=== PATIENT | female | born 1940 | race Caucasian/White ===

== ENCOUNTER 2020-05-24 15:29 | Emergency (ER) | payer OTHER ==
[2020-05-24 17:29] LABS: Absolute Lymphocytes (CBC) 0.7 K/uL (0.7-4.9); Basophils % 0.2 % (0-1.3); Hematocrit 40.9 % (36.0-45.0); Lymphocytes % 7.3 % (15.3-44.8); MPV 6.6 fL (7.6-11.3)
[2020-05-24] MEDS ORDERED: NA CHLORIDE 0.9% 500 ML ONE (17:33)
[2020-05-24 17:45] LABS: Albumin 2.7 g/dL (3.4-5.0); Bilirubin Total 1.8 mg/dL (0.2-1.0); Magnesium 2.6 mg/dL (1.8-2.4); Potassium 3.7 mmol/L (3.5-5.1); Protein, Total 7.7 g/dL (6.4-8.2)
--- NOTE | 2020-05-24 17:54 | RAD REPORT ---
EXAM DESCRIPTION: CT - Head Brain Wo Cont - 05/24/2020 5:41 pm CLINICAL HISTORY: Alteration of awareness/confusion COMPARISON: None TECHNIQUE: Computed axial tomography of the head was obtained. IV contrast was not requested. All CT scans are performed using dose optimization technique as appropriate and may include automated exposure control or mA/KV adjustment according to patient size. FINDINGS: An intracranial bleed is not seen . The ventricles are normal in caliber. No extra-axial fluid collection is noted. Mild low-density areas within periventricular, deep and subcortical white matter likely represent isc hemic changes secondary to small vessel disease. Cerebral atrophy. 1.5 low-density area right parietal lobe Right mastoids are opacified IMPRESSION: 1.5 low-density right parietal lobe has a nonspecific appearance. It has more of the chente earance of being chronic than acute and may represent a small area of ischemia or small infarct. No acute intracranial abnormality is seen. If patient's symptoms persist MRI of the brain would be r ecommended. Right mastoid opacification. This can be seen with mastoiditis and should be correlated clinically.
--- NOTE | 2020-05-24 18:01 | RAD REPORT ---
EXAM DESCRIPTION: [facility] Single View05/24/2020 5:18 pm CLINICAL HISTORY: Cough COMPARISON: 2015 FINDINGS: The lungs appear clear of acute infiltrate. The heart is normal size IMPRESSION: No acute abnormalities displayed
[2020-05-24 18:05] LABS: Anisocytosis 3+; Blood Morphology Comment NOTED (NOT SEEN); Macrocytosis 1+; Platelet Estimate ADEQ; Platelets, Giant NOTED; White Blood Cell Scan OK (OK)
[2020-05-24 18:15] LABS: Urine Blood TRACE (NEG); Urine Glucose NEGATIVE (NEG); Urine Protein 1+ (NEG)
[2020-05-24] MEDS ORDERED: CEFTRIAXONE/SWI 1gm 1 GM/10 ML SYR ONE (18:38)
[2020-05-24 18:43] LABS: Urine Bacteria >50 /HPF (<20); Urine Culture Reflex Order NOT NEEDED; Urine RBC <5 /HPF (NONE SEEN); Urine Urothelial Cells <5 /HPF (NONE SEEN)
[2020-05-24] MEDS ORDERED: NA CHLORIDE 0.9% 1,000 ML ONE (19:08)
--- NOTE | 2020-05-24 19:43 | RAD REPORT ---
EXAM DESCRIPTION: CT - Abdomen Pelvis W Contrast - 05/24/2020 7:24 pm CLINICAL HISTORY: Abdominal pain / elevated liver function test enzymes COMPARISON: none. TECHNIQUE: Computed axial tomography of the abdomen pelvis was obtained. 100 cc Isovue-300 was admin istered intravenously. Oral contrast was not requested which limits evaluation of bowel. All CT scans are performed using dose optimization technique as appropriate and may include automated exposure control or mA/KV adjustment according to patient size. FINDINGS: Multiple gallstones are present. The gallbladder is distended. The liver has a heterogeneous density. Fatty liver is present. The spleen, pancreas, adrenals and kidneys unremarkable No evidence of diverticulitis. Right posterolateral disc herniation L4-5 IMPRESSION: Cholelithiasis Fatty liver Heterogeneous hepatic density probably indicating inflammation
--- NOTE | 2020-05-24 22:29 | EDPHYS ---
Physician Documentation [facility] Name: Yasmin Brody Age: 79 yrs Sex: Female : 1940 Arrival Date: 05/24/2020 Time: 15:30 Bed 13 Private MD: ED Physician Keon Batista HPI: 05/24 17:09 This 79 yrs old Female presents to ER via Wheelchair with complaints of rn Decreased Appetite, dehydration, AMS. 17:09 The patient presents with decreased mental status. Onset: The symptoms/episode rn began/occurred 1 week(s) ago. Possible causes: unknown. Associated signs and symptoms: Pertinent positives: weakness, Pertinent negatives: abdominal pain, chest pain, headache, seizure, shortness of breath, vomiting. Current symptoms: In the emergency department the patient's symptoms are unchanged from the initial presentation. The patient has not experienced similar symptoms in the past. The patient has not recently seen a physician. daughter reports 1 week not acting like herself, not eating, decreased strength, dehydration. Reports feels like has lost the will to live, recent family , but marked change recently. Reports recent fall, unsure if any head injury. No extremity injury or pain.. Historical: - Allergies: 15:48 No Known Allergies; jd3 - Home Meds: 15:48 None [Active]; jd3 - PMHx: 15:48 None; jd3 - PSHx: 15:48 None; jd3 - Immunization history:: Adult Immunizations up to date. - Social history:: Smoking status: Patient denies any tobacco usage or history of. - Family history:: not pertinent. - Hospitalizations: : No recent hospitalization is reported. - History obtained from: daughter. ROS: 17:09 Constitutional: Negative for fever, chills Eyes: Negative for injury, pain, redness, rn and discharge, ENT: + right ear pain Neck: Negative for injury, pain, and swelling, Cardiovascular: Negative for chest pain, palpitations, and edema, Respiratory: + cough Abdomen/GI: Negative for abdominal pain, nausea, vomiting, diarrhea, and constipation, Back: Negative for injury and pain, : Negative for injury, bleeding, discharge, and swelling, MS/Extremity: Negative for injury and deformity, Skin: Negative for injury, rash, and discoloration, Neuro: Negative for headache, numbness, tingling, and seizure. Exam: 17:09 Constitutional: This is a well developed, well nourished patient who is awake, alert, rn and in no acute distress. Head/Face: Normocephalic, atraumatic. ENT: very dry MM, no stridor, no masses or swelling Neck: No cervical lymphadenopathy. Cardiovascular: Regular rate and rhythm. No pulse deficits. Respiratory: No increased work of breathing, no retractions or nasal flaring. Abdomen/GI: Soft, non-tender Skin: warm, dry, + tenting of skin MS/ Extremity: Pulses equal, no cyanosis. Neurovascular intact. Full, normal range of motion. Equal circumference. Neuro: Awake and alert, moves all 4 extremities, [id number], follows commands, normal coordination Vital Signs: 15:48 BP 111 / 51; Pulse 84; Resp 18; Temp 97.1(TE); Pulse Ox 98% on R/A; Weight 56.7 kg (R); d3 Height 5 ft. 6 in. (167.64 cm) (R); Pain 4/10; 17:07 BP 130 / 73; Pulse 79; Resp 16 S; Pulse Ox 100% on R/A; ca1 18:00 BP 112 / 79; Pulse 81; Resp 16 S; Pulse Ox 98% on R/A; ca1 19:00 BP 129 / 97; Pulse 62; Resp 16 S; Pulse Ox 100% on R/A; ca1 20:00 BP 138 / 68; Pulse 90; Resp 16 S; Pulse Ox 98% on R/A; ca1 21:00 BP 147 / 77; Pulse 86; Resp 16 S; Pulse Ox 97% on R/A; ca1 23:13 BP 132 / 71; Pulse 95; Resp 17 S; Pulse Ox 99% on R/A; jd3 15:48 Body Mass Index 20.18 (56.70 kg, 167.64 cm) [facility] MDM: 16:28 Patient medically screened. rn 22:24 Differential Diagnosis: CVA, electrolyte abnormality, hypoglycemia, intracranial bleed, mh7 pneumonia, sepsis, UTI, volume depletion. Data reviewed: vital signs, nurses notes, lab test result(s), CBC, electrolytes, urinalysis, EKG, radiologic studies, CT scan. Data interpreted: Pulse oximetry: on room air is 97 %. Counseling: I had a detailed discussion with the patient and/or guardian regarding: the historical points, exam findings, and any diagnostic results supporting the discharge/admit diagnosis, the presence of at least one elevated blood pressure reading (>120/80) during this emergency department visit, lab results, radiology results, the need to transfer to another facility, for higher level of care, [facility] does not immediately have the required specialist. Response to treatment: the patient's symptoms have mildly improved after treatment. Physician consultation: Dominic Greco MD regarding patient's condition, after a discussion of the case, a recommendation for transfer for higher level of care is made. 05/24 16:54 Order name: CBC with Diff; Complete Time: 19: 05/24 16:54 Order name: Basic Metabolic Panel; Complete Time: 17:54 05/24 16:54 Order name: Urine Culture 05/24 16:54 Order name: Urine Microscopic Only; Complete Time: 19: 05/24 16:54 Order name: Magnesium; Complete Time: 17:54 05/24 16:54 Order name: Procalcitonin; Complete Time: 19: 05/24 16:54 Order name: CK; Complete Time: 17:54 05/24 16:54 Order name: Hepatic Function; Complete Time: 17:54 05/24 16:54 Order name: Lipase; Complete Time: 17:54 05/24 16:54 Order name: Flu; Complete Time: 17:45 05/24 16:54 Order name: Strep; Complete Time: 17:45 05/24 17:34 Order name: Throat Culture [facility] 05/24 17:36 Order name: CBC Smear Scan; Complete Time: 19: [facility] 05/24 18:09 Order name: Urine Dipstick--Ancillary (enter results); Complete Time: 19:01 sc 05/24 16:54 Order name: IV Start; Complete Time: 17:19 05/24 16:54 Order name: Urine Dipstick-Ancillary (obtain specimen); Complete Time: 18:08 05/24 16:54 Order name: Labs collected and sent; Complete Time: 17:19 05/24 16:54 Order name: XRAY Chest (1 view); Complete Time: 18:06 05/24 16:54 Order name: CT Head Brain wo Cont; Complete Time: 17:59 rn 05/24 18:11 Order name: CT Abd/Pelvis - IV Contrast Only; Complete Time: 19:45 rn 05/24 22:31 Order name: Basic Metabolic Panel 7 Administered Medications: Discontinued: NS 0.9% 1000 ml IV at 125 ml/hr continuous 17:22 Drug: NS 0.9% 500 ml Route: IV; Rate: bolus; Site: right antecubital; ca1 18:20 Follow up: Response: No adverse reaction; IV Status: Completed infusion; IV Intake: jd3 500ml 18:28 Drug: Rocephin 1 grams Route: IV; Rate: calculated rate; Site: right antecubital; ca1 19:20 Follow up: Response: No adverse reaction; IV Status: Completed infusion jd3 20:06 Drug: NS 0.9% 1000 ml Route: IV; Rate: 125 ml/hr; Site: right antecubital; ca1 23:31 Follow up: Response: No adverse reaction; IV Status: Order to discontinue infusion jd3 Disposition: 05/24/20 22:28 Transfer ordered to [facility]. Diagnosis are Dehydration, Urinary tract infection, site not specified, Hyperosmolality and hypernatremia, Cholelithiasis-Possible Choledocolithiasis. - Reason for transfer: Higher level of care. - Accepting physician is Dr. Ferraro. - Condition is Stable. - Problem is new. - Symptoms have improved. Signatures: Dispatcher [employer] EDMS Fer Mota MD MD rn Pena, Laura RN RN lp1 Helio Santacruz, STAMP ANALYST-C STAMP ANALYST-Cla1 Darian Das RN RN jd3 Radha Dangelo RN RN ca1 Keon Batista MD MD 7 Corrections: (The following items were deleted from the chart) 22:46 22:28 05/24/2020 22:28 Transfer ordered to [facility]. 7 Diagnosis is Dehydration; Urinary tract infection, site not specified; Hyperosmolality and hypernatremia; Cholelithiasis-Possible Choledocolithiasis. Reason for transfer: Higher level of care. Accepting physician is Dr. Dietrich/Jay. Condition is Stable. Problem is new. Symptoms have improved. 7 05/25 00:35 05/24 22:46 05/24/2020 22:28 Transfer ordered to [facility]. lp1 Diagnosis is Dehydration; Urinary tract infection, site not specified; Hyperosmolality and hypernatremia; Cholelithiasis-Possible Choledocolithiasis. Reason for transfer: Higher level of care. Accepting physician is Dr. Ferraro. Condition is Stable. Problem is new. Symptoms have improved. mh7
--- NOTE | 2020-05-24 22:29 | ER ---
Nurse's Notes [facility] Name: Yasmin Brody Age: 79 yrs Sex: Female : 1940 Arrival Date: 05/24/2020 Time: 15:30 Bed 13 Private MD: Diagnosis: Dehydration;Urinary tract infection, site not specified;Hyperosmolality and hypernatremia;Cholelithiasis-Possible Choledocolithiasis Presentation: 05/24 15:44 Chief complaint: Patient's son or daughter states: adult child:" he doctor said after jd3 lab work said everything looked good, but low on protein. but here recently she has not been eating or drinking well. I called her doctor and she said she might be dehydrated. I think she might be getting depressed or maybe confused because of maybe dehydration.". Coronavirus screen: At this time, the client does not indicate any symptoms associated with coronavirus-19. Ebola Screen: Patient negative for fever greater than or equal to 101.5 degrees Fahrenheit, and additional compatible Ebola Virus Disease symptoms. Initial Sepsis Screen: Does the patient meet any 2 criteria? No. Patient's initial sepsis screen is negative. Does the patient have a suspected source of infection? No. Patient's initial sepsis screen is negative. Risk Assessment: Do you want to hurt yourself or someone else? Patient reports no desire to harm self or others. Onset of symptoms was May 11, 2020. 15:44 Method Of Arrival: Wheelchair jd3 15:44 Acuity: SHAMIR 3 jd3 Historical: - Allergies: 15:48 No Known Allergies; jd3 - Home Meds: 15:48 None [Active]; jd3 - PMHx: 15:48 None; jd3 - PSHx: 15:48 None; jd3 - Immunization history:: Adult Immunizations up to date. - Social history:: Smoking status: Patient denies any tobacco usage or history of. - Family history:: not pertinent. - Hospitalizations: : No recent hospitalization is reported. - History obtained from: daughter. Screenin:40 Abuse screen: Denies threats or abuse. Denies injuries from another. Nutritional ca1 screening: No deficits noted. Tuberculosis screening: No symptoms or risk factors identified. Fall Risk IV access (20 points). Assessment: 16:40 General: Appears in no apparent distress. comfortable, Behavior is calm, cooperative. ca1 Pain: Denies pain. Neuro: Level of Consciousness is awake, alert, obeys commands, Oriented to person, place, time, situation. Cardiovascular: Heart tones S1 S2 present Capillary refill < 3 seconds Patient's skin is warm and dry. Respiratory: Airway is patent Respiratory effort is even, unlabored, Respiratory pattern is regular, symmetrical, Breath sounds are clear bilaterally. GI: Abdomen is flat, non-distended, Bowel sounds present X 4 quads. Abd is soft and non tender X 4 quads. : No signs and/or symptoms were reported regarding the genitourinary system. EENT: No signs and/or symptoms were reported regarding the EENT system. Derm: Skin is intact, is healthy with good turgor, Skin is pink, warm \\T\\ dry. Musculoskeletal: Circulation, motion, and sensation intact. Capillary refill < 3 seconds. 17:40 Reassessment: Patient appears in no apparent distress at this time. Patient and/or ca1 family updated on plan of care and expected duration. Pain level reassessed. Patient is alert, oriented x 3, equal unlabored respirations, skin warm/dry/pink. 18:36 Reassessment: Patient appears in no apparent distress at this time. Patient and/or ca1 family updated on plan of care and expected duration. Pain level reassessed. Patient is alert, oriented x 3, equal unlabored respirations, skin warm/dry/pink. 19:30 Reassessment: Patient appears in no apparent distress at this time. No changes from ca1 previously documented assessment. Patient is alert, oriented x 3, equal unlabored respirations, skin warm/dry/pink. 20:23 Reassessment: Meliza Nelson, contacted at [phone], a voicemail was left on sg behalf of who had some questions about the pt. awaiting a call back at this time. 20:30 Reassessment: Patient appears in no apparent distress at this time. No changes from ca1 previously documented assessment. Patient is alert, oriented x 3, equal unlabored respirations, skin warm/dry/pink. 21:26 Reassessment: Patient appears in no apparent distress at this time. No changes from ca1 previously documented assessment. Patient and/or family updated on plan of care and expected duration. Pain level reassessed. Patient is alert, oriented x 3, equal unlabored respirations, skin warm/dry/pink. 22:00 Reassessment: Patient and/or family updated on plan of care and expected duration. Pain jd3 level reassessed. Patient is alert, oriented x 3, equal unlabored respirations, skin warm/dry/pink. General: Appears in no apparent distress. comfortable, Behavior is calm, cooperative. Pain: Denies pain. Neuro: Level of Consciousness is awake, alert, obeys commands, Oriented to person, place, time, situation. Cardiovascular: Capillary refill < 3 seconds Patient's skin is warm and dry. Respiratory: Airway is patent Respiratory effort is even, unlabored, Respiratory pattern is regular, symmetrical. 22:00 GI: Abdomen is flat, non-distended, Abd is soft and non tender X 4 quads. jd3 22:03 Reassessment: report given to Torsten GARZA. jd3 23:26 Reassessment: Patient appears in no apparent distress at this time. Patient and/or jd3 family updated on plan of care and expected duration. Pain level reassessed. Patient is alert, oriented x 3, equal unlabored respirations, skin warm/dry/pink. report given to Rosie GARZA at [facility]. 23:44 Reassessment: awaiting [facility] ambulance for transfer to [facility]. jd3 05/25 00:19 Reassessment: [facility] at bedside for transfer. lp1 Vital Signs: 05/24 15:48 BP 111 / 51; Pulse 84; Resp 18; Temp 97.1(TE); Pulse Ox 98% on R/A; Weight 56.7 kg (R); jd3 Height 5 ft. 6 in. (167.64 cm) (R); Pain 4/10; 17:07 BP 130 / 73; Pulse 79; Resp 16 S; Pulse Ox 100% on R/A; ca1 18:00 BP 112 / 79; Pulse 81; Resp 16 S; Pulse Ox 98% on R/A; ca1 19:00 BP 129 / 97; Pulse 62; Resp 16 S; Pulse Ox 100% on R/A; ca1 20:00 BP 138 / 68; Pulse 90; Resp 16 S; Pulse Ox 98% on R/A; ca1 21:00 BP 147 / 77; Pulse 86; Resp 16 S; Pulse Ox 97% on R/A; ca1 23:13 BP 132 / 71; Pulse 95; Resp 17 S; Pulse Ox 99% on R/A; jd3 15:48 Body Mass Index 20.18 (56.70 kg, 167.64 cm) jd3 ED Course: 15:30 Patient arrived in ED. as 15:47 Triage completed. jd3 15:48 Arm band placed on. jd3 16:28 Fer Mota MD is Attending Physician. rn 16:39 Radha Dangelo RN is Primary Nurse. ca1 16:40 Patient has correct armband on for positive identification. Placed in gown. Bed in low ca1 position. Call light in reach. Side rails up X2. Pulse ox on. NIBP on. Warm blanket given. 17:15 No provider procedures requiring assistance completed. Initial lab(s) drawn, by ok, ca1 sent to lab. Inserted saline lock: 20 gauge in right antecubital area, using aseptic technique. Blood collected. 17:18 XRAY Chest (1 view) In Process Unspecified. EDMS 17:41 CT Head Brain wo Cont In Process Unspecified. EDMS 19:01 Attending Physician role handed off by Fer Mota MD [facility] 19:01 Keon Batista MD is Attending Physician. [facility] 19:23 CT Abd/Pelvis - IV Contrast Only In Process Unspecified. EDMS 21:04 Initiated transfer with Stephanie from [facility]. Pt request the [facility]. Stephanie said she tt3 would check on it and call back. 21:32 Stephanie called back and stated that the [facility] does not have GI services tt3 currently. 21:33 Initiated transfer at [facility] with Grace Contreras. tt3 21:42 Grace called back with their GI physician to speak with Dr. Batista regarding the pt tt3 transfer. 21:52 Grace called back to get updated vitals on the pt. tt3 22:19 Grace called back with their hospitalist to speak with Dr. Batista regarding the tt3 transfer. 22:36 Grace Contreras gave admin approval. The accepting physician is Dr. Ferraro. Face sheet tt3 faxed to per Grace's request. Nurse to call report to . The pt is going to room 2146. 23:19 [facility] will transfer the pt. tt3 05/25 00:10 Report received from KAYLA Farmer. lp1 00:20 Patient transferred, IV remains in place. lp1 Administered Medications: Discontinued: NS 0.9% 1000 ml IV at 125 ml/hr continuous 05/24 17:22 Drug: NS 0.9% 500 ml Route: IV; Rate: bolus; Site: right antecubital; ca1 18:20 Follow up: Response: No adverse reaction; IV Status: Completed infusion; IV Intake: jd3 500ml 18:28 Drug: Rocephin 1 grams Route: IV; Rate: calculated rate; Site: right antecubital; ca1 19:20 Follow up: Response: No adverse reaction; IV Status: Completed infusion jd3 20:06 Drug: NS 0.9% 1000 ml Route: IV; Rate: 125 ml/hr; Site: right antecubital; ca1 23:31 Follow up: Response: No adverse reaction; IV Status: Order to discontinue infusion jd3 Intake: 18:20 IV: 500ml; Total: 500ml. jd3 Outcome: 22:28 ER care complete, [facility] 23:33 Condition: stable jd3 05/25 00:20 Transferred by ground EMS to [facility], Transfer form completed. lp1 X-rays sent w/ patient. Instructed on the need for transfer. 00:35 Patient left the ED. lp1 Addendum: 05/28/2020 12:09 Addendum: Culture Results: Positive urine culture. Patient was not prescribed d m5 antibiotics at discharge. Report given to SURY for further evaluation and then to administrative sales assistant for follow up with patient. Phone call Attempt #1 Pt. transferred to [facility]. Culture and sensitivity report given to pt's nurse and faxed to number provided [phone]. Signatures: Dispatcher [employer] EDMS Tosha Serrato, KAYLA GARZA dm5 Hever Valles RN RN sg Martinez, Amelia as Nieto, Roman, MD MD rn Pena, Laura, RN RN lp1 Darian Das RN RN jd3 Acob, Cheryl, RN RN ca1 Holmes, Maurice, MD MD [facility] Norm Mueller tt3
[2020-05-25] LABS: BUN Blood Urea Nitrogen 35 mg/dL (7-18); Bicarbonate 30 mmol/L (21-32); Glucose Level 130 mg/dL (74-106); Potassium 3.6 mmol/L (3.5-5.1); Sodium Level 154 mmol/L (136-145)
[2020-05-25 04:43] VITALS: TEMP 97.1
[2020-05-25 04:58] VITALS: BP 132/71; O2SAT 99
== END 2020-05-25 00:35 | disposition short-term general hospital (02) ==
LOC: ER 15:29
DX: N39.0 Urinary tract infection, site not specified (principal); E86.0 Dehydration; E87.0 Hyperosmolality and hypernatremia; K80.20 Calculus of gallbladder without cholecystitis without obstruction
CPT/HCPCS: 96365; 96361; 87070; 87088; 85025; 87086; 80048 ×2; 36415; 83735; 82550; 80076; 87081; 87077; 87186; 83690; 84145; 87804 ×2; 70450; 74177; 71045; 99285; Q9967; J0696; J7040; J7030; 81003; 81015